=== PATIENT | female | born 1970 | race Hispanic/Latino ===

== ENCOUNTER 2021-08-05 21:50 | Emergency (ER) | payer OTHER ==
--- NOTE | 2021-08-06 00:46 | EDPHYS ---
Physician Documentation [facility] Name: Uyen Almazan Age: 50 yrs Sex: Female : 1970 Arrival Date: 08/05/2021 Time: 21:50 Bed 11 Private MD: ED Physician Lukas Cruz HPI: 08/05 22:15 This 50 yrs old Female presents to ER via EMS with complaints of Gas Exposure. cp 22:15 Type of Exposure: potential inhalation, a chemical, a "whiff" of vinyl chloride and HCL.cp 22:15 Context: The problem was sustained at work. Onset: The symptoms/episode began/occurred cp just prior to arrival, today. Symptoms: shortness of breath and burning of throat. Patient given Albuterol NEB treatment prior to arrival. 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 Pneumococcal vaccine is not up to date, Flu vaccine is up to date. - Social history:: Smoking status: Patient denies any tobacco usage or history of. ROS: 22:20 Constitutional: Negative for body aches, chills, fever, poor PO intake. cp 22:20 Eyes: Negative for injury, pain, redness, and discharge. cp 22:20 ENT: Positive for burning of throat, Negative for drainage from ear(s), ear pain, difficulty swallowing, difficulty handling secretions. 22:20 Cardiovascular: Negative for chest pain, palpitations. 22:20 Respiratory: Positive for shortness of breath. 22:20 Abdomen/GI: Negative for abdominal pain, nausea, vomiting, and diarrhea. 22:20 Neuro: Negative for altered mental status, headache, weakness. 22:20 All other systems are negative. Exam: 22:25 Constitutional: The patient appears in no acute distress, alert, awake, comfortable, cp non-diaphoretic, non-toxic, well developed, well nourished. 22:25 Head/Face: Normocephalic, atraumatic. cp 22:25 Eyes: Periorbital structures: appear normal, Conjunctiva: normal, no exudate, no injection, Sclera: no appreciated abnormality, Lids and lashes: appear normal, bilaterally. 22:25 ENT: External ear(s): are unremarkable, Nose: is normal, Mouth: Lips: moist, Oral mucosa: pink and intact, moist, Posterior pharynx: Airway: no evidence of obstruction, patent, Tonsils: are normal in appearance, Uvula: normal, swelling, is not appreciated, erythema, is not appreciated, exudate, is not appreciated. 22:25 Neck: ROM/movement: is normal, is supple, without pain, no range of motions limitations. 22:25 Chest/axilla: Inspection: normal. 22:25 Cardiovascular: Rate: normal, Rhythm: regular, Edema: is not appreciated, JVD: is not appreciated. 22:25 Respiratory: the patient does not display signs of respiratory distress, Respirations: normal, no use of accessory muscles, no retractions, labored breathing, is not present, Breath sounds: are clear throughout, no decreased breath sounds, no stridor, no wheezing. 22:25 Abdomen/GI: Exam negative for discomfort, distension, guarding, Inspection: abdomen appears normal. 22:25 Skin: no rash present. 22:25 Neuro: Orientation: to person, place \\T\\ time. Mentation: is normal, Motor: moves all fours, strength is normal, Sensation: is normal. Vital Signs: 21:58 BP 126 / 77; Pulse 85; Resp 20; Temp 98.1(O); Pulse Ox 99% on R/A; Weight 78.93 kg (R); al4 Height 5 ft. 3 in. (160.02 cm) (R); Pain 10/10; 23:21 BP 146 / 79; Pulse 76; Resp 18 S; Temp 97.6; Pulse Ox 97% ; al4 08/06 00:17 BP 99 / 87; Pulse 75; Resp 18 S; Pulse Ox 95% on R/A; al4 00:51 BP 118 / 78; al4 08/05 21:58 Body Mass Index 30.82 (78.93 kg, 160.02 cm) al4 MDM: 08/05 21:54 Patient medically screened. cp 08/06 00:45 Data reviewed: vital signs, nurses notes, radiologic studies, plain films. cp 00:45 Test interpretation: by ED physician or midlevel provider: plain radiologic studies. cp Counseling: I had a detailed discussion with the patient and/or guardian regarding: the historical points, exam findings, and any diagnostic results supporting the discharge/admit diagnosis, radiology results, the need for outpatient follow up, a family practitioner, to return to the emergency department if symptoms worsen or persist or if there are any questions or concerns that arise at home. Response to treatment: the patient's symptoms have markedly improved after treatment. ED course: VSS. Patient reports she is feeling much better. Appears in no acute distress, non-toxic. Consult with Poison Control who recommended baseline chest xray and monitoring symptoms. Will discharge to home for continued monitoring. 08/05 22:09 Order name: XRAY Chest (1 view) cp Administered Medications: No medications were administered Disposition Summary: 08/06/21 00:45 Discharge Ordered Location: Home cp Problem: new cp Symptoms: have improved cp Condition: Stable cp Diagnosis - Contact with and (suspected) exposure to hazardous, chiefly nonmedicinal, chemicals cp Followup: cp - With: Private Physician - When: 1 - 2 days - Reason: Recheck today's complaints Discharge Instructions: - Discharge Summary Sheet cp - Chemical Inhalation Injury, Adult cp Forms: - Medication Reconciliation Form cp - Thank You Letter cp - Antibiotic Education cp - Prescription Opioid Use cp Addendum: 08/12/2021 07:29 Co-signature as Attending Physician, Lukas Cruz MD I agree with the assessment and k dr plan of care. Signatures: Dispatcher [employer] EDMS Lukas Cruz MD MD [facility] Jag Hoskins PA PA cp Harman Muñoz4
--- NOTE | 2021-08-06 00:46 | ER ---
Nurse's Notes [facility] Name: Uyen Almazan Age: 50 yrs Sex: Female : 1970 Arrival Date: 08/05/2021 Time: 21:50 Bed 11 Private MD: Diagnosis: Contact with and (suspected) exposure to hazardous, chiefly nonmedicinal, chemicals Presentation: 08/05 21:52 Chief complaint: EMS states: patient was exposed to "a whiff" of vinyl chloride gas and al4 HCL at work. patient was given [address] to the hospital. Coronavirus screen: Vaccine status: Patient reports being unvaccinated. Ebola Screen: No symptoms or risks identified at this time. Risk Assessment: Do you want to hurt yourself or someone else? Patient reports no desire to harm self or others. Onset of symptoms was August 05, 2021. 21:52 Method Of Arrival: EMS al4 21:52 Acuity: COLIN 3 al4 21:58 Initial Sepsis Screen: Does the patient meet any 2 criteria? No. Patient's initial al4 sepsis screen is negative. Does the patient have a suspected source of infection? No. Patient's initial sepsis screen is negative. 22:14 Note Poison Control contacted recommendations as follows: baseline chest Xray, bb symptomatic treatment. Triage Assessment: 21:53 General: Appears in no apparent distress. uncomfortable, Behavior is calm, cooperative. al4 Pain: Complains of pain in soft palate, uvula, left aspect of posterior pharynx and right aspect of posterior pharynx Pain currently is 10 out of 10 on a pain scale. Quality of pain is described as burning, "feels like I am about to get strep throat". EENT: Throat is pink. Neuro: Level of Consciousness is awake, alert, obeys commands, Oriented to person, place, time, situation. Cardiovascular: Capillary refill < 3 seconds Patient's skin is warm and dry. Respiratory: Airway is patent Respiratory effort is unlabored, Respiratory pattern is regular. Musculoskeletal: Range of motion: intact in all extremities. 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 Pneumococcal vaccine is not up to date, Flu vaccine is up to date. - Social history:: Smoking status: Patient denies any tobacco usage or history of. Screenin:59 Abuse screen: Denies threats or abuse. Nutritional screening: No deficits noted. al4 Tuberculosis screening: No symptoms or risk factors identified. Fall Risk No fall in past 12 months (0 pts). No IV (0 pts). Ambulatory Aid- None/Bed Rest/Nurse Assist (0 pts). Gait- Normal/Bed Rest/Wheelchair (0 pts) Mental Status- Oriented to own ability (0 pts). Total Arizmendi Fall Scale indicates No Risk (0-24 pts). Assessment: 22:00 Reassessment: see triage assessment. al4 22:01 Reassessment: ERP gave permission for patient to walk to restroom. al4 22:09 Reassessment: TRAY Mock spoke to poison control. al4 22:36 Reassessment: Patient is alert, oriented x 3, equal unlabored respirations, skin al4 warm/dry/pink. 23:31 Reassessment: Patient and/or family updated on plan of care and expected duration. Pain al4 level reassessed. Patient is alert, oriented x 3, equal unlabored respirations, skin warm/dry/pink. 08/06 00:17 Reassessment: Patient and/or family updated on plan of care and expected duration. Pain al4 level reassessed. Patient is alert, oriented x 3, equal unlabored respirations, skin warm/dry/pink. Patient states feeling better. 00:52 Reassessment: Patient is alert, oriented x 3, equal unlabored respirations, skin al4 warm/dry/pink. Vital Signs: 08/05 21:58 BP 126 / 77; Pulse 85; Resp 20; Temp 98.1(O); Pulse Ox 99% on R/A; Weight 78.93 kg (R); al4 Height 5 ft. 3 in. (160.02 cm) (R); Pain 10/10; 23:21 BP 146 / 79; Pulse 76; Resp 18 S; Temp 97.6; Pulse Ox 97% ; al4 08/06 00:17 BP 99 / 87; Pulse 75; Resp 18 S; Pulse Ox 95% on R/A; al4 00:51 BP 118 / 78; al4 08/05 21:58 Body Mass Index 30.82 (78.93 kg, 160.02 cm) al4 ED Course: 03 21:50 Patient arrived in ED. 21:52 Harman Muñoz is Primary Nurse. al4 21:53 Triage completed. al4 21:53 Arm band placed on. al4 21:54 Jag Hoskins PA is PHCP. cp 21:54 Lukas Cruz MD is Attending Physician. cp 21:59 Patient has correct armband on for positive identification. Placed in gown. Bed in low al4 position. 22:51 XRAY Chest (1 view) In Process Unspecified. EDMS 03 00:46 No provider procedures requiring assistance completed. Patient did not have IV access al4 during this emergency room visit. Administered Medications: No medications were administered Outcome: 00:45 Discharge ordered by MD. cp 00:52 Discharged to home ambulatory. al4 00:52 Condition: stable 00:52 Discharge instructions given to patient, Instructed on discharge instructions, follow up and referral plans. Demonstrated understanding of instructions, follow-up care. 00:52 Patient left the ED. al4 Signatures: Dispatcher [employer] [facility] Emili Banegas RN RN Jag Woodard PA PA cp Marsh, Wendy Harman Muñoz al4 Corrections: (The following items were deleted from the chart) 08/05 21:57 21:52 Chief complaint: EMS states: patient was exposed to chemical at work. patient was al4 given [address] treatment on the way to the hospital al4 23:31 23:21 BP 146 / 79; Temp 97.6F; al4 al4 08/06 00:18 00:17 Reassessment: Patient and/or family updated on plan of care and expected al4 duration. Pain level reassessed. Patient is alert, oriented x 3, equal unlabored respirations, skin warm/dry/pink. al4
[2021-08-06 02:32] VITALS: TEMP 97.6
[2021-08-06 02:34] VITALS: O2SAT 95
[2021-08-06 02:35] VITALS: BP 118/78
--- NOTE | 2021-08-06 11:59 | RAD REPORT ---
EXAM DESCRIPTION: RAD - Chest Single View - 08/05/2021 10:51 pm CLINICAL HISTORY: 50 years Female chemical exposure TECHNIQUE: One view of the chest. COMPARISON: No prior exams provided for comparison. FINDINGS: The lungs are clear without focal consolidation, effusion, or pneumothorax. The cardiomedi astinal silhouette and central pulmonary vasculature are normal. No acute osseous abnormalities. IMPRESSION: No acute cardiopulmonary abnormalities. Electronically signed by: Alondra Lopez MD 08/05/2021 11:26 PM CDT Due to temporary technical issues with the PACS/Fluency reporting system, reports are being signed by the in house radiologist without review as a courtesy to ensure prompt reporting. The interpreting r adiologist is fully responsible for the content of the report.
== END 2021-08-06 00:52 | disposition home or self-care (01) ==
LOC: ER 21:50
DX: R07.0 Pain in throat (principal); Z77.098 Contact with and (suspected) exposure to other hazardous, chiefly nonmedicinal, chemicals; Z88.1 Allergy status to other antibiotic agents
CPT/HCPCS: 71045; 99283